=== PATIENT | male | born 2000 | race Two or more races ===

== ENCOUNTER 2021-10-27 21:10 | Emergency (ER) | payer BC, MEDICAID ==
[~2021-10-27] VITALS: Ht 170.2 cm; Wt 83.6 kg
[2021-10-27] MEDS ORDERED: LIDO30CR TOP (22:25)
[2021-10-27] MEDS ORDERED: LIDOCAINE 5% OINTMENT 35GM TP ONE (22:25)
[2021-10-27] MEDS ORDERED: LIDOcaine 2% jelly 6ml syringe ***for topical use only MM ONE (22:35)
[2021-10-27 22:50] VITALS: BP 136/79
== END 2021-10-27 22:52 | disposition home or self-care (01) ==
LOC: ER 21:11
DX: K62.89 Other specified diseases of anus and rectum (principal)
CPT/HCPCS: 99283